=== PATIENT | male | born 1980 | race Caucasian/White ===

== ENCOUNTER → 2021-11-04 08:06 | Emergency (ER) | payer OTHER | LOC: ED 08:06 | DX: Z53.9 Procedure and treatment not carried out, unspecified reason (principal) ==

== ENCOUNTER 2021-11-04 08:10 | Emergency (ER) | payer OTHER ==
[2021-11-04] MEDS ORDERED: Sodium Chloride 0.9% 1000 ML 1,000 ML ONE (08:30)
[2021-11-04] MEDS ORDERED: Sodium Chloride 0.9% 1000 ML 1,000 ML IV SCH (08:30)
[2021-11-04 08:37] LABS: Absolute Neutrophil Ct (ANC) 1.77 x10^3/uL (1.4-6.9); Basophil (Absolute #) 0.03 x10^3/uL (0-0.4); Eosinophil % 5.9 % (0.00-5.0); Eosinophil (Absolute #) 0.25 x10^3/uL (0-0.5); Hematocrit 43.4 % (42-50); Hemoglobin 14.5 g/dL (12.5-18.0); Lymphocytes % 42.2 % (24.0-44.0); Mean Corpuscular Hemoglobin 30.1 pg (26-32); Mean Corpuscular Hgb Concent. 33.4 g/dL (32-36); Mean Platelet Volume 10.7 fL (7.5-11.0); Monocyte (Absolute #) 0.42 x10^3/uL (0.0-1.3); Monocytes % 9.8 % (0.0-12.0); Neutrophil % 41.4 % (36.0-66.0); Platelet Count 177 x10^3/uL (150-450); Red Blood Count 4.82 x10^6/uL (4.1-5.6); Red Cell Distribution Width 11.9 % (11.5-14.0); White Blood Count 4.3 x10^3/uL (4.0-10.5)
[2021-11-04 08:40] VITALS: O2SAT 96
[2021-11-04 08:51] LABS: ALBUMIN 3.8 g/dL (3.5-5.0); ALKALINE PHOSPHATASE 52 U/L (38-126); ANION GAP 9.4 MEQ/L (5-15); BLOOD UREA NITROGEN 19 mg/dL (9-20); CHLORIDE 105 mmol/L (98-107); Calcium 8.8 mg/dL (8.4-10.2); Carbon Dioxide 28 mmol/L (22-30); Creatinine 1 0.94 mg/dL (0.66-1.25); EST GLOMERULAR FILTRATION RATE > 60.0 ML/MIN; Glucose 115 mg/dL (74-106); MAGNESIUM 2.1 mg/dL (1.6-2.3); Potassium 3.8 mmol/L (3.5-5.1); SGOT/AST 130 U/L (17-59); SGPT/ALT 82 U/L (0-50); SODIUM 139 mmol/L (137-145); Total Protein 6.4 g/dL (6.3-8.2)
--- NOTE | 2021-11-04 09:08 | ERPHSYRPT ---
- History of Present Illness Time Seen by Provider: 11/04/21 09:06 Historian: patient Exam Limitations: no limitations Patient Subjective Stated Complaint: States woke up with chest pain approx 25 minutes ago. Denies SOB, heart palpitations, N/V, dizziness, light headed. D enies any unusual food consumption yesterday or today. Denies pain radiating anywhere. States pain is across entire chest and is described as "tightness." Triage Nursing Assessment: Patient ambulated back to ED without difficulties; no SOB noted. Patient is alert and oriented and answering questions appropriately. Skin warm, dry, normal skin tone. Physician History: States woke up with chest pain approx 25 minutes ago. Denies SOB, heart palpita tions, N/V, dizziness, light headed. Denies any unusual food consumption yesterday or today. Denies pain radiating anywhere. States pain is across entire chest and is described as "tightness." Timing/Duration: today Activities at Onset: none Quality: tightness Location: central Chest Pain Radiation: no radiation Severity of Pain-Max: mild Severity of Pain-Current: none Modifying Factors: Improves With: nothing Associated Symptoms: denies symptoms Prior Chest Pain/Cardiac Workup: no prior chest pain Nitro Today/Relief: no nitro taken today Aspirin Treatment Today: no aspirin today Body Map: 1 - chest pain Allergies/Adverse Reactions: Penicillins Allergy (Verified 11/04/21 08:13) Home Medications: Insulin Pump Syringe, 3 ml [Insulin Cartridge] 1 each MC DAILY 11/27/15 [History] Hx Tetanus, Diphtheria Vaccination/Date Given: Yes Hx Influenza Vaccination/Date Given: No Hx Pneumococcal Vaccination/Date Given: No Immunizations Up to Date: Yes Travel Risk - International Travel Have you traveled outside of the country in past 3 weeks: No - Coronavirus Screening Are you exhibiting any of the following symptoms?: No Close contact with a COVID-19 positive Pt in past 14-21 Days: No - Vaccine Status Have you recieved a Covid-19 vaccination: Yes Volleyball Assistant Coach: [employer] - Vaccination Dates Date of 2cond Vaccination (if applicable): 2020 - Review of Systems Constitutional: No Fever, No Chills Eyes: No Symptoms Ears, Nose, & Throat: No Symptoms Respiratory: No Cough, No Dyspnea Cardiac: Chest Pain, No Edema, No Syncope Abdominal/Gastrointestinal: No Abdominal Pain, No Nausea, No Vomiting, No Diarrhea Genitourinary Symptoms: No Dysuria Musculoskeletal: No Back Pain, No Neck Pain Skin: No Rash Neurological: No Dizziness, No Focal Weakness, No Sensory Changes Psychological: No Symptoms Endocrine: No Symptoms All Other Systems: Reviewed and Negative - Past Medical History Pertinent Past Medical History: Yes Cardiac History: Other Endocrine Medical History: Diabetes Type I GI Medical History: Gallbladder Disease Other Medical History: Heart Murmur - Past Surgical History Past Surgical History: Yes Gastrointestinal: Cholecystectomy - Social History Smoking Status: Never smoker Exposure to second hand smoke: No Drug Use: none Patient Lives Alone: No - Nursing Vital Signs Nursing Vital Signs: Initial Vital Signs Temperature 96.9 F 11/04/21 08:14 Pulse Rate 66 11/04/21 08:14 Respiratory Rate 11 L 11/04/21 08:14 Blood Pressure 120/78 11/04/21 08:14 O2 Sat by Pulse Oximetry 99 11/04/21 08:14 Pain Scale Pain Intensity 5 - Physical Exam General Appearance: no apparent distress, alert Eye Exam: PERRL/EOMI, eyes nml inspection Ears, Nose, Throat Exam: normal ENT inspection, moist mucous membranes Neck Exam: normal inspection, non-tender, supple, full range of motion Respiratory Exam: normal breath sounds, lungs clear, No respiratory distress Cardiovascular Exam: regular rate/rhythm, normal heart sounds Gastrointestinal/Abdomen Exam: soft, No tenderness, No mass Back Exam: normal inspection, No CVA tenderness, No vertebral tenderness Extremity Exam: normal inspection, normal range of motion Neurologic Exam: alert, oriented x 3, cooperative, normal mood/affect, sensation nml, No motor deficits Skin Exam: normal color, warm, dry SpO2: 96 - Course Nursing assessment & vital signs reviewed: Yes EKG Interpreted by Me: Sinus Rhythm - Radiology Exams Chest X-ray Interpretation: Reviewed by me, Negative Ordered Tests: Active Orders 24 hr Category Date Time Status Store Clerk Checker STAT Care 11/04/21 08:24 Active EKG-ER Only STAT Care 11/04/21 08:23 Active IV Insertion STAT Care 11/04/21 08:23 Active Oxygen-ED Only Nasal Cannula 2 lpm Care 11/04/21 08:23 Active CHEST 2 VIEWS (PA AND LAT) Stat Exams 11/04/21 08:41 Taken CBC W DIFF Stat Lab 11/04/21 08:20 Completed CMP Stat Lab 11/04/21 08:20 Completed MAGNESIUM Stat Lab 11/04/21 08:20 Completed TROPONIN Q3H Lab 11/04/21 08:20 Completed TROPONIN Q3H Lab 11/04/21 11:30 Ordered TROPONIN Q3H Lab 11/04/21 14:30 Ordered TROPONIN Q3H Lab 11/04/21 17:30 Ordered TROPONIN Q3H Lab 11/04/21 20:30 Ordered Medication Summary Generic Name Dose Route Start Last Admin Trade Name Freq PRN Reason Stop Dose Admin Sodium Chloride 1,000 mls @ 100 mls/hr 11/04/21 08:30 11/04/21 08:42 Sodium Chloride 0.9% 1000 Ml IV 12/04/21 08:29 100 mls/hr .Q10H LEVY Administration Lab/Rad Data: Laboratory Result Diagrams 11/04/21 08:20 11/04/21 08:20 Laboratory Results 11/04/21 11/04/21 11/04/21 Range/Units 08:20 08:20 08:20 WBC 4.3 (4.0-10.5) x10^3/uL RBC 4.82 (4.1-5.6) x10^6/uL Hgb 14.5 (12.5-18.0) g/dL Hct 43.4 (42-50) % MCV 90.0 (78-100) fL MCH 30.1 (26-32) pg MCHC 33.4 (32-36) g/dL RDW 11.9 (11.5-14.0) % Plt Count 177 (150-450) x10^3/uL MPV 10.7 (7.5-11.0) fL Gran % 41.4 (36.0-66.0) % Immature Gran % (Auto) 0.0 (0.00-0.4) % Nucleat RBC Rel Count 0.0 (0.00-0.1) % Eos # (Auto) 0.25 (0-0.5) x10^3/uL Immature Gran # (Auto) 0.00 (0.00-0.03) x10^3u/L Absolute Lymphs (auto) 1.80 (1.0-4.6) x10^3/uL Absolute Monos (auto) 0.42 (0.0-1.3) x10^3/uL Absolute Nucleated RBC 0.00 (0.00-0.01) x10^3u/L Lymphocytes % 42.2 (24.0-44.0) % Monocytes % 9.8 (0.0-12.0) % Eosinophils % 5.9 H (0.00-5.0) % Basophils % 0.7 (0.0-0.4) % Absolute Granulocytes 1.77 (1.4-6.9) x10^3/uL Basophils # 0.03 (0-0.4) x10^3/uL Sodium 139 (137-145) mmol/L Potassium 3.8 (3.5-5.1) mmol/L Chloride 105 (98-107) mmol/L Carbon Dioxide 28 (22-30) mmol/L Anion Gap 9.4 (5-15) MEQ/L BUN 19 (9-20) mg/dL Creatinine 0.94 (0.66-1.25) mg/dL Estimated GFR > 60.0 ML/MIN Glucose 115 H (74-106) mg/dL Calcium 8.8 (8.4-10.2) mg/dL Magnesium 2.1 (1.6-2.3) mg/dL Total Bilirubin 0.70 (0.2-1.3) mg/dL AST 130 H (17-59) U/L ALT 82 H (0-50) U/L Alkaline Phosphatase 52 (38-126) U/L Troponin I < 0.012 (0.000-0.034) ng/mL Serum Total Protein 6.4 (6.3-8.2) g/dL Albumin 3.8 (3.5-5.0) g/dL - Progress Progress: improved Air Movement: good Blood Culture(s) Obtained: No Antibiotics given: No Counseled pt/family regarding: lab results, diagnosis, need for follow-up, rad results - Departure Departure Disposition: Home Clinical Impression: Chest pain at rest, Elevated liver enzymes Condition: Stable Critical Care Time: Yes Critical Care Time(excluding separately billable procedures): Critical 30-74 mins Referrals: LAN VENTURA MD [Primary Care Provider] - Follow up/PCP as directed Instructions: Chest Pain (DC) Additional Instructions: Discharge/Care Plan CRYSTAL MILES was seen on 11/04/21 in the Emergency Room. The patient was counseled regarding Diagnosis,Lab results, Imaging studies, need for follow up and when to return to the Emergency Room. Prescriptions given: Discharge Note I have spoken with the patient and/or caregivers. I have explained the patient's condition, diagnosis and treatment plan based on the information available to me at this time. I have answered the patient's and/or caregiver's questions and addressed any concerns. The patient and/or caregivers have as good understanding of the patient's diagnosis, condition and treatment plan as can be expected at this point. The vital signs have been stable. The patient's condition is stable and appropriate for discharge from the emergency department. The patient will pursue further outpatient evaluation with the primary care physician or other designated or consulting physician as outlined in the discharge instructions. The patient and/or caregivers are agreeable to this plan of care and follow-up instructions have been explained in detail. The patient and/or caregivers have received these instruction. The patient/and or caregivers are aware that any significant change in condition or worsening of symptoms should prompt an immediate return to this or the closest emergency department or call 911. CRYSTAL MILES was seen on 11/04/21 n the Emergency Room. At that time you were treated for an emergent condition, during your visit Laboratory, Radiology and/or other procedures may have been ordered. It is very important that you follow-up with your Primary Care Physician LAN VENTURA within the next 24- 48 hours to review your Emergency Room visit and the final results of testing that was ordered. Some test results such as Urine Cultures, Blood Cultures, and other cultures if ordered will not be finalized for 24-48 hours. If you do not have a Primary Care Provider please call the medical records department at [phone] ext [phone] to obtain a copy of your results or you may sign into our patient portal to obtain these results by visiting us @ [email or web address] and completing the following steps: 1. Click on the Patient Portal link 2. Click the Patient Self Enrollment Link to complete the enrollment form and entering your 3. Once the enrollment form is completed you will receive an email with a temporary ID and password at the email address you provided. 4. Next choose a user name and password. Your user name must be at least 4 khanh racters long and your password must be at least 4 characters long. 5. Choose a security question from the list and provide your answer to the question. If you already have signed into the Health Portal you may access your Health Care Information 18/11 by the following steps: 1. Login to our website @ [email or web address] 2. Enter your original user name and password. FAQS The [facility] Portal is an online tool that contains your Lab Results, Radiology Reports, Visit History, Discharge Instructions and Health Summary Lab and Radiology Results will not be available for 72 hours on the portal. The Portal is a secure site, passwords are encryted and URLs are re-written so they cannot be copied and pasted. You and authorized family members are the only ones who can access your Portal. Also there is a timeout feature that protects your information if you leave the Portal page open. If you have technical difficulty please use the Contact Us link on the page this will allow you to submit any questions you have regarding the Portal or you may contact the Medical Record Department at [phone] ext [phone].
[2021-11-04 09:21] VITALS: BP 119/84; PULSE 64
--- NOTE | 2021-11-04 19:37 | XRAY ---
Indication: Chest pain. Comparison: March 30, 2020. PA/lateral chest again hyperinflated with a few tiny calcified granulomas. No focal infiltrate, consolidation, or large effusion. Heart and mediastinal structures within normal limits. Bony thorax intact. Impression: Nonacute hyperinflated chest with old granulomatous disease.
[2021-11-06 08:12] LABS: HBsAg Screen Negative (Negative); HCV Ab 0.1 s/co ratio (0.0-0.9); Hep A Ab, IgM Negative (Negative); Hep B Core Ab, IgM Negative (Negative)
== END 2021-11-04 09:31 | disposition home or self-care (01) ==
LOC: ED 08:10
DX: R07.9 Chest pain, unspecified (principal); R74.8 Abnormal levels of other serum enzymes; E10.9 Type 1 diabetes mellitus without complications
CPT/HCPCS: 36000; 36415; 71046; 80053; 80074; 83735; 84484; 85025; 93005; 93041; 96360; 99284

== ENCOUNTER 2024-04-17 04:02 | Observation (INO) | payer OTHER ==
--- NOTE | 2024-04-17 04:59 | XRAY ---
CLINICAL HISTORY: syncopal episode, slurred speech COMPARISON: None. TECHNIQUE: Axial noncontrast CT scan of the brain was performed from the skull base to the high parietal region. One of the following dose reduction techniques were utilized for this exam: Automated exposure control, adjustment of the mA and/or kV according to patient size, use of iterative reconstruction. FINDINGS: The visualized brain parenchyma shows normal appearance. No focal parenchymal abnormalities are demonstrated. Toure-white matter differentiation is maintained. No midline shifts or deformity. No intracerebral or extra axial hematoma. Normal size and configuration of the cerebral ventricles. Normal CT appearance of the posterior fossa structures namely the cerebellar hemispheres, brainstem and cerebellar peduncles. The cerebello-pontine angles are clear. The osseous structures in the skull base are unremarkable. No definite calvarium fractures. Mucosal thickening of bilateral maxillary, sphenoidal, ethmoidal and frontal sinuses. IMPRESSION: 1. No evidence of established infarction, intracranial or extracranial hemorrhage. Early changes of stroke may not be detected on a CT scan. If strong clinical suspicion of stroke then suggest MRI with diffusion-weighted imaging. 2. Pansinusitis. Electronically Signed by: Marli Holt MD. (04/17/2024 04:55:04 EST)
--- NOTE | 2024-04-17 05:11 | ERPHSYRPT ---
- History of Present Illness Source: patient Exam Limitations: no limitations Patient Subjective Stated Complaint: Pts states pt went to the bathroom and she heard a thud and pt had fallen into hallway, was on the ground "pasty white" and would only say "stop it" for approx 20 minutes with slurred speech. Per pts the event as decribed happened two more times each time pt "coming to" sa gage stop it repeatedly with slurred speech. Pts states each time pts eyes would be open but not "cohearant". While these events were taking place pt was said to be cold to the touch, pale, lips pale. Triage Nursing Assessment: Pt alert and oriented x3. Respirations eas y/nonlabored. Skin w/p/d. Wheeled to ED cot, transfered with assist x1. 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 Strong push/pull bilat lower extremities. PERRLA. Laceration to right eyebrow approx 3cm in length. Witnessed: by family Prior Episodes: multiple episodes today, no prior history Timing/Duration: today, resolved prior to arrival Precipitating Factors: none Context: standing Loss of Consciousness: brief (seconds), dazed Charcter of event(s): collapsed Hx Tetanus, Diphtheria Vaccination/Date Given: No Hx Influenza Vaccination/Date Given: No Hx Pneumococcal Vaccination/Date Given: No <SILVIA MACIAS - Last Filed: 04/17/24 07:11> <CONNIE STALEY - Last Filed: 04/17/24 08:09> - History of Present Illness Time Seen by Provider: 04/17/24 04:45 Allergies/Adverse Reactions: Penicillins Allergy (Verified 04/17/24 04:25) Home Medications: Insulin Pump Syringe, 3 ml [Insulin Cartridge] 1 each MC DAILY 11/27/15 [History] Losartan Potassium 25 mg PO DAILY 04/17/24 [History] Travel Risk - International Travel Have you traveled outside of the country in past 3 weeks: No - Emerging Infectious Disease Are you exhibiting symptoms associated with any current EIDs: No <SILVIA MACIAS - Last Filed: 04/17/24 07:11> - Past Medical History Pertinent Past Medical History: Yes Cardiac History: Hypertension Respiratory History: Asthma Endocrine Medical History: Diabetes Type I Musculoskeletal History: No Pertinent History GI Medical History: Gallbladder Disease, Other Other Medical History: SX history: R knee Meniscus Repair (Feb 12), Left elbow lateral epicondylitis sx Apr 2022, Gallbladder removed. Nonalcoholic fatty liver - Past Surgical History Past Surgical History: Yes Gastrointestinal: Cholecystectomy Musculoskeletal: Other Other Surgical History: SX history: R knee Meniscus Repair (Feb 12), Left elbow lateral epicondylitis sx Apr 2022 - Social History Smoking Status: Never smoker Exposure to second hand smoke: No Drug Use: none Patient Lives Alone: No - Social Determinants of Health Will the patient participate in the screening: Yes Do you worry about a steady place to live?: No Do you have any problems with any of the following?: No known problems In the past 12 months,have you had to go without utilities?: No Transportation Issues: No Has anyone in your support network made you feel unsafe?: No Have you or anyone in your house had to go without enough: No <SILVIA MACIAS - Last Filed: 04/17/24 07:11> - Review of Systems All Other Systems: Reviewed and Negative <SILVIA MACIAS - Last Filed: 04/17/24 07:11> Physical Exam - [place] Coma Scale Best Eye Response ([place]): (4) open spontaneously Best Verbal Response ([place]): (5) oriented Best Motor Response ([place]): (6) obeys commands Bam Total: 15 - Physical Exam General Appearance: no apparent distress Eye Exam: bilateral eye: normal inspection, PERRL, EOMI Neck Exam: normal inspection, non-tender, supple, full range of motion Respiratory: airway intact, No respiratory distress Cardiovascular: regular rate/rhythm, normal heart sounds, capillary refill <2 sec, No edema Back Exam: normal inspection, normal range of motion, No vertebral tenderness Extremity Exam: normal inspection, normal range of motion, No tenderness Mental Status: alert, oriented x 3, cooperative device engineer Exam: normal hearing, normal speech, PERRL, tongue midline Coordination/Gait: normal cerebellar function Motor/Sensory: no motor deficit, no sensory deficit, no pronator drift Skin Exam: laceration (center forehead) SpO2 Interpretation: normal SpO2: 97 O2 Delivery: Room Air <SILVIA MACIAS - Last Filed: 04/17/24 07:11> - Nursing Vital Signs Nursing Vital Signs: Initial Vital Signs Pulse Rate 60 12/21/24 04:14 Respiratory Rate 21 04/17/24 04:14 Blood Pressure 112/66 04/17/24 04:14 O2 Sat by Pulse Oximetry 100 04/17/24 04:14 Pain Scale Pain Intensity 3 - Course Nursing assessment & vital signs reviewed: Yes EKG Interpreted by Me: RATE (59), Sinus Rhythm, NORMAL AXIS, NORMAL INTERVALS, NORMAL QRS, NORMAL ST-T - CT Exams Head CT Interpretation: Negative, Tele-radiologist Report <SILVIA MACIAS - Last Filed: 04/17/24 07:11> Ordered Tests: Active Orders 24 hr Category Date Time Status EKG-ER Only STAT Care 04/17/24 05:06 Active CHEST 1 VIEW (PORTABLE) Stat Exams 04/17/24 07:[address] ANGIOGRAPHY NECK [CT] Stat Exams 04/17/24 05:22 Completed CTA HEAD W AND/OR WO CONTRAST [CT] Stat Exams 04/17/24 05:22 Completed HEAD WITHOUT CONTRAST [CT] Stat Exams 04/17/24 04:16 Completed CBC W DIFF Stat Lab 04/17/24 05:16 Completed CMP Stat Lab 04/17/24 05:16 Completed POCT GLUCOSE Stat Lab 04/17/24 04:09 Completed TROPONIN Q4H Lab 04/17/24 05:16 Completed TROPONIN Q4H Lab 04/17/24 09:15 Ordered TROPONIN Q4H Lab 04/17/24 13:15 Ordered TSH, 3RD Generation Stat Lab 04/17/24 05:16 Completed UA W/RFX UR CULTURE Stat Lab 04/17/24 06:32 Completed [place] 3-7 Day Holter ONCE RT 04/17/24 06:48 Completed Medication Summary Discontinued Medications Generic Name Dose Route Start Last Admin Trade Name Fabiana PRN Reason Stop Dose Admin Acetaminophen 975 mg 04/17/24 06:38 04/17/24 06:42 Acetaminophen 325 Mg Tablet PO 04/17/24 06:39 975 mg STAT STA Administration Acetaminophen Confirm 04/17/24 06:41 Acetaminophen 325 Mg Tablet Administered 04/17/24 06:42 Dose 975 mg .ROUTE .STK-MED ONE Lab/Rad Data: Laboratory Result Diagrams 04/17/24 05:16 04/17/24 05:16 Laboratory Results 04/17/24 04/17/24 04/17/24 Range/Units 06:32 05:16 05:16 WBC (4.23-9.07) x10^3/uL RBC (4.63-6.08) x10^6/uL Hgb (13.7-17.5) g/dL Hct (40.1-51.0) % MCV (79.0-92.2) fL MCH (25.7-32.2) pg MCHC (32.3-36.5) g/dL RDW (11.6-14.4) % Plt Count (163-337) x10^3/uL MPV (9.4-12.4) fL Gran % (34.0-67.9) % Immature Gran % (Auto) (0.001-0.429) % Nucleat RBC Rel Count (0.00-0.2) % Eos # (Auto) (0.04-0.54) x10^3/uL Immature Gran # (Auto) (0.001-0.031) x10^3u/L Absolute Lymphs (auto) (1.32-3.57) x10^3/uL Absolute Monos (auto) (0.30-0.82) x10^3/uL Absolute Nucleated RBC (0.00-0.012) x10^3u/L Lymphocytes % (21.8-53.1) % Monocytes % (5.3-12.2) % Eosinophils % (0.8-7.0) % Basophils % (0.2-1.2) % Absolute Granulocytes (1.78-5.38) x10^3/uL Basophils # (0.01-0.08) x10^3/uL Sodium (135-145) mmol/L Potassium (3.5-5.1) mmol/L Chloride (98-107) mmol/L Carbon Dioxide (22-30) mmol/L Anion Gap (5-15) MEQ/L BUN (9-20) mg/dL Creatinine (0.66-1.25) mg/dL Estimated GFR ML/MIN Glucose (74-106) mg/dL POC Glucometer (74 to 106) mg/dL Calcium (8.4-10.2) mg/dL Total Bilirubin (0.2-1.3) mg/dL AST (17-59) U/L ALT (0-50) U/L Alkaline Phosphatase (38-126) U/L Ammonia < 9 L (9-30) umol/L Troponin I < 0.012 (0.000-0.033) ng/mL Serum Total Protein (6.3-8.2) g/dL Albumin (3.5-5.0) g/dL TSH 3rd Generation (0.470-4.680) mIU/L Urine Color Yellow (Yellow) Urine Appearance Clear (Clear) Urine pH 5.5 (4.6-8.0) Ur Specific [place] >=1.030 A (1.005-1.030) Urine Protein Trace A (Negative) Urine Glucose (UA) Negative (Negative) mg/dL Urine Ketones Negative (Negative) Urine Blood Negative (Negative) Urine Nitrite Negative (Negative) Urine Bilirubin Negative (Negative) Urine Urobilinogen 1.0 A (0.2) mg/dL Ur Leukocyte Esterase Negative (Negative) U Hyaline Cast (Auto) 3-5 A (0-2) /LPF Urine Microscopic RBC 0-2 (0-5) /HPF Urine Microscopic WBC 0-2 (0-5) /HPF Ur Epithelial Cells None Seen (None Seen) /HPF Urine Bacteria None Seen (None Seen) /HPF Urine Culture Reflexed NO (NO) 04/17/24 04/17/24 04/17/24 Range/Units 05:16 05:16 04:09 WBC 5.9 (4.23-9.07) x10^3/uL RBC 4.80 (4.63-6.08) x10^6/uL Hgb 14.5 (13.7-17.5) g/dL Hct 42.2 (40.1-51.0) % MCV 87.9 (79.0-92.2) fL MCH 30.2 (25.7-32.2) pg MCHC 34.4 (32.3-36.5) g/dL RDW 11.9 (11.6-14.4) % Plt Count 219 (163-337) x10^3/uL MPV 11.0 (9.4-12.4) fL Gran % 46.2 (34.0-67.9) % Immature Gran % (Auto) 0.2 (0.001-0.429) % Nucleat RBC Rel Count 0.0 (0.00-0.2) % Eos # (Auto) 0.30 (0.04-0.54) x10^3/uL Immature Gran # (Auto) 0.01 (0.001-0.031) x10^3u/L Absolute Lymphs (auto) 2.20 (1.32-3.57) x10^3/uL Absolute Monos (auto) 0.59 (0.30-0.82) x10^3/uL Absolute Nucleated RBC 0.00 (0.00-0.012) x10^3u/L Lymphocytes % 37.5 (21.8-53.1) % Monocytes % 10.1 (5.3-12.2) % Eosinophils % 5.1 (0.8-7.0) % Basophils % 0.9 (0.2-1.2) % Absolute Granulocytes 2.71 (1.78-5.38) x10^3/uL Basophils # 0.05 (0.01-0.08) x10^3/uL Sodium 141 (135-145) mmol/L Potassium 3.8 (3.5-5.1) mmol/L Chloride 106 (98-107) mmol/L Carbon Dioxide 27 (22-30) mmol/L Anion Gap 11.8 (5-15) MEQ/L BUN 17 (9-20) mg/dL Creatinine 1.09 (0.66-1.25) mg/dL Estimated GFR 85.3 ML/MIN Glucose 99 (74-106) mg/dL POC Glucometer 91 (74 to 106) mg/dL Calcium 8.8 (8.4-10.2) mg/dL Total Bilirubin 0.30 (0.2-1.3) mg/dL AST 33 (17-59) U/L ALT 27 (0-50) U/L Alkaline Phosphatase 40 (38-126) U/L Ammonia (9-30) umol/L Troponin I (0.000-0.033) ng/mL Serum Total Protein 6.6 (6.3-8.2) g/dL Albumin 4.4 (3.5-5.0) g/dL TSH 3rd Generation 4.889 H (0.470-4.680) mIU/L Urine Color (Yellow) Urine Appearance (Clear) Urine pH (4.6-8.0) Ur Specific [place] (1.005-1.030) Urine Protein (Negative) Urine Glucose (UA) (Negative) mg/dL Urine Ketones (Negative) Urine Blood (Negative) Urine Nitrite (Negative) Urine Bilirubin (Negative) Urine Urobilinogen (0.2) mg/dL Ur Leukocyte Esterase (Negative) U Hyaline Cast (Auto) (0-2) /LPF Urine Microscopic RBC (0-5) /HPF Urine Microscopic WBC (0-5) /HPF Ur Epithelial Cells (None Seen) /HPF Urine Bacteria (None Seen) /HPF Urine Culture Reflexed (NO) - Progress Progress: improved Counseled pt/family regarding: lab results, diagnosis, need for follow-up, rad results <SILVIA MACIAS - Last Filed: 04/17/24 07:11> - Progress Discussed with Dr.: Other (Dr. Cárdenas hospitalist) Will see patient in: hospital (observation) <CONNIE STALEY - Last Filed: 04/17/24 08:09> - Progress Progress Note: 04/17/24 08:03 Patient is checked out to me at shift change from Dr. Macias with pending CTA head and neck. Patient presented with 3 syncopal episodes prior to arrival. He has a nonfocal neuroexam during my evaluation. He denies any headache. Vitals are stable. Forehead laceration is repaired by Dr. Macias with glue and Steri- Strips. Workup showed normal white count, chemistries fairly unremarkable except for mild elevation in TSH. Negative troponins. EKG is sinus rhythm with no ST elevations. Chest x-ray is negative for any acute cardiopulmonary findings reviewed by me, official report is pending. CT head is negative. CTA head and neck are negative for any acute occlusive findings. I do not know why patient had multiple syncopal episodes which seems to be possible cardiogenic and needs further evaluation. Dr. Macias has placed patient on a heart monitor. I have discussed with Dr. Cárdenas, reviewed history, workup and agreed with admission. I have shared the results of workup with patient and family and recommended admission which they understand and agree. (CONNIE STALEY) Medical Desision Making - Diagnostic Testing Diagnostic test were ordered, analyzed, and reviewed by me: Yes Radiological Interpretation: Interpreted by me, Reviewed by me, Teleradiologist Report - Risk of complications The pt has a mod risk of morbidity or mortality based on: Need for prescription drug management <SILVIA MACIAS - Last Filed: 04/17/24 07:11> - Independent Historian Additional History obtained from: Spouse - Discussion of managment Care discussed with:: hospitalist (Dr. Cárdenas hospitalist) Reviewed:: Test results, Need for additional workup Agreed on:: Treatment plan, place in obs Will see patient: in hospital - Diagnostic Testing Radiological Interpretation: Interpreted by me, Reviewed by me, Teleradiologist Report - Risk of complications The pt has a high risk of morbidity or mortality based on: Decision regarding hospitilization or escalation of hosp level of care <CONNIE STALEY - Last Filed: 04/17/24 08:09> - Departure Critical Care Time: No <SILVIA MACIAS - Last Filed: 04/17/24 07:11> - Departure Departure Disposition: Observation <CONNIE STALEY - Last Filed: 04/17/24 08:09> - Departure Clinical Impression: Syncope and collapse, Laceration of forehead without complication Condition: Good Referrals: LAN VENTURA MD [Primary Care Provider] - Follow up/PCP as directed Instructions: Syncope (Fainting) (DC)
[2024-04-17 05:20] LABS: Absolute Neutrophil Ct (ANC) 2.71 x10^3/uL (1.78-5.38); BASOPHIL % 0.9 % (0.2-1.2); Basophil (Absolute #) 0.05 x10^3/uL (0.01-0.08); Eosinophil % 5.1 % (0.8-7.0); Hematocrit 42.2 % (40.1-51.0); Hemoglobin 14.5 g/dL (13.7-17.5); IMMATURE GRAN # 0.01 x10^3u/L (0.001-0.031); IMMATURE GRAN % 0.2 % (0.001-0.429); Lymphocytes % 37.5 % (21.8-53.1); Mean Cell Volume 87.9 fL (79.0-92.2); Mean Corpuscular Hemoglobin 30.2 pg (25.7-32.2); Mean Corpuscular Hgb Concent. 34.4 g/dL (32.3-36.5); Monocyte (Absolute #) 0.59 x10^3/uL (0.30-0.82); Monocytes % 10.1 % (5.3-12.2); Neutrophil % 46.2 % (34.0-67.9); Platelet Count 219 x10^3/uL (163-337); Red Cell Distribution Width 11.9 % (11.6-14.4); White Blood Count 5.9 x10^3/uL (4.23-9.07)
[2024-04-17 06:04] LABS: ALBUMIN 4.4 g/dL (3.5-5.0); ANION GAP 11.8 MEQ/L (5-15); BILIRUBIN,TOTAL 0.3 mg/dL (0.2-1.3); Calcium 8.8 mg/dL (8.4-10.2); Creatinine 1 1.09 mg/dL (0.66-1.25); EST GLOMERULAR FILTRATION RATE 85.3 ML/MIN; Potassium 3.8 mmol/L (3.5-5.1); TSH, 3RD Generation 4.889 mIU/L (0.470-4.680); Total Protein 6.6 g/dL (6.3-8.2)
[2024-04-17 06:40] LABS: Appearance Clear (Clear); Bacteria None Seen /HPF (None Seen); Bilirubin Negative (Negative); Blood Negative (Negative); Epithelial Cells None Seen /HPF (None Seen); Glucose, Urine Negative (Negative); Ketones Negative (Negative); Leukocyte Esterase Negative (Negative); Nitrite Negative (Negative); Ph 5.5 (4.6-8.0); Protein,Urine Dip Trace (Negative); RBC 0-2 /HPF (0-5); Specific Gravity >=1.030 (1.005-1.030); WBC 0-2 /HPF (0-5)
[2024-04-17] MEDS ORDERED: TYLENOL 325 MG ONE (06:41)
[2024-04-17] MEDS: TYLENOL 325 MG PO STA (06:42)
--- NOTE | 2024-04-17 07:03 | XRAY ---
CLINICAL HISTORY: syncope COMPARISON: None. TECHNIQUE: CT angiography study of the neck vessels with IV contrast was performed and multiple axial sections were obtained with coronal and sagittal reconstructions. 80 cc Isovue 370 was administered, CTDI: 33.25 mGy, DLP: 702.58 mGy*cm. One of the following dose reduction techniques were utilized for this exam: Automated exposure control, adjustment of the mA and/or kV according to patient size, and use of iterative reconstruction. One of these 3D techniques was utilized: Maximum Intensity Pixel (MIP), 3D Reconstructed Images, Volume Rendered Images, Surface Shaded Rendering. FINDINGS: Carotid Arteries: Common carotid arteries, internal carotid arteries, and external carotid arteries bilaterally are well-opacified. No evidence of significant stenosis, occlusion, or aneurysm. No significant atherosclerotic changes. Vertebral Arteries: Vertebral arteries bilaterally are well-opacified. No evidence of significant stenosis, occlusion, or aneurysm. No significant atherosclerotic changes. Jugular Veins: Normal opacification of the internal and external jugular veins bilaterally. No evidence of thrombosis or compression. Subclavian Arteries: Subclavian arteries bilaterally are well-opacified. No evidence of significant stenosis, occlusion, or aneurysm. Thyroid Gland: Normal size and morphology of the thyroid gland. No masses or nodules. Soft Tissues: Normal appearance of the surrounding soft tissues of the neck. No abnormal masses or lymphadenopathy. Cervical Spine: Spondylotic changes in cervical spine. Normal alignment and signal intensity of the cervical vertebrae. No fractures, lytic or sclerotic lesions. IMPRESSION: 1. Normal CT angiography of the neck. 2. No evidence of significant vascular abnormalities. Electronically Signed by: Marli Holt MD. (04/17/2024 07:00:04 EST)
--- NOTE | 2024-04-17 07:30 | XRAY ---
CLINICAL HISTORY: syncope COMPARISON: Prior CT dated 04/17/2024 for comparison. TECHNIQUE: Axial CT angiography of the head was done with contrast (80 ml Isovue 370) and sagittal and coronal reformats with MIP reconstructions. One of these 3D techniques was utilized: Maximum Intensity Pixel (MIP), 3D Reconstructed Images, Volume Rendered Images, Surface Shaded Rendering. One of the following dose reduction techniques were utilized for this exam: Automated exposure control, adjustment of the mA and/or kV according to patient size, and use of iterative reconstruction. CTDI: 53.92 mGy. FINDINGS: Intracranial Arteries: The intracranial portions of the internal carotid arteries, anterior cerebral arteries, middle cerebral arteries, posterior cerebral arteries, basilar artery, and vertebral arteries are well-opacified. No evidence of aneurysm, stenosis, or occlusion. No significant atherosclerotic changes. [place]: The [place] is complete. Normal caliber of the communicating arteries. No vascular malformations or aneurysms. Dominant left vertebral artery. Venous Structures: Normal opacification of the major dural venous sinuses. No evidence of venous sinus thrombosis. Brain Parenchyma: Normal attenuation of the cerebral hemispheres, cerebellum, and brainstem. No evidence of acute infarct, hemorrhage, or mass effect. Ventricular System: Ventricles are normal in size and configuration. No evidence of hydrocephalus or ventricular enlargement. Skull and Meninges: Normal appearance of the skull. No evidence of meningeal enhancement or thickening. Orbits: Normal appearance of the globes, optic nerves, and extraocular muscles. No evidence of orbital masses. Mild mucosal thickening in left maxillary, right sphenoid and bilateral ethmoid sinuses. Unchanged. IMPRESSION: 1. Normal CT angiography of the head. 2. No evidence of significant vascular or intracranial abnormalities. Electronically Signed by: Marli Holt MD. (04/17/2024 07:25:16 EST)
--- NOTE | 2024-04-17 08:10 | XRAY ---
Indication: Syncope. Comparison: November 04, 2021 Portable apical lordotic chest again demonstrates normal heart, lungs, and bony thorax. Incidental new midline electronic device.
[2024-04-17] MEDS ORDERED: Sodium Chloride 0.9% 1000 ML 1,000 ML ONE (08:28)
[2024-04-17] MEDS: Sodium Chloride 0.9% 1000 ML 1,000 ML IV STA (08:29)
--- NOTE | 2024-04-17 10:11 | PCM.HP ---
History of Present Illness - Chief Complaint Chief Complaint: Syncope and collapse Date: 04/17/24 History of Present Illness: is a 43 year old male with PMHX of Type I DM, asthma, HTN, and nonalcoholic fatty liver disease. Patient presented with 3 syncopal episodes prior to arrival. Neuro exam normal in ER and on IP admission. He has a headache and was given tylenol in the ER, current pain level 3/10. Vitals are stable. Forehead laceration was repaired by Dr. Schuster in ER with glue and Steri-Strips. Workup showed normal white count, chemistries fairly unremarkable except for mild elevation in TSH. Negative troponins. EKG is sinus rhythm with no ST elevations. Chest x-ray is negative for any acute cardiopulmonary findings. CT head is negative. CTA head and neck are negative for any acute occlusive findings. Neurology consulted. We are unable to do MRI, or echo on the weekends. Placed on tele. Will monitor glucose by dexcom and compare with accucheck machine AC/HS. He denies any further concerns at this time. - Review of Systems Constitutional: No Fever, No Chills Eyes: No Symptoms Ears, Nose, & Throat: No Symptoms Respiratory: No Cough, No Short Of Breath Cardiac: No Chest Pain, No Edema, No Syncope Abdominal/Gastrointestinal: No Abdominal Pain, No Nausea, No Vomiting, No Diarrhea Genitourinary Symptoms: No Dysuria Musculoskeletal: No Back Pain, No Neck Pain Skin: Skin Lesions (lac above right eyebrow), No Rash Neurological: Headache, No Dizziness, No Focal Weakness, No Sensory Changes Psychological: No Symptoms Endocrine: No Symptoms Hematologic/Lymphatic: No Symptoms Immunological/Allergic: No Symptoms Medications & Allergies Home Medications: Home Medication List Insulin Pump Syringe, 3 ml [Insulin Cartridge] 1 each MC DAILY 11/27/15 [History Confirmed 04/17/24] Losartan Potassium 25 mg PO DAILY 04/17/24 [History Confirmed 04/17/24] Allergies/Adverse Reactions: Allergies Allergy/AdvReac Type Severity Reaction Status Date / Time Penicillins Allergy Verified 04/17/24 04:25 - Past Medical History Past Medical History: Yes Neurological History: No Pertinent History ENT History: No Pertinent History Cardiac History: Hypertension Respiratory History: No Pertinent History Endocrine Medical History: Diabetes Type I Musculoskelatal History: No Pertinent History GI Medical History: Gallbladder Disease, Other History: No Pertinent History Male Reproductive Disorders: No Pertinent History Comment: SX history: R knee Meniscus Repair (Feb 12), bilateral elbow lateral epicondylitis sx Apr 2022, Gallbladder removed. Nonalcoholic fatty liver - Past Surgical History Past Surgical History: Yes Neuro Surgical History: No Pertinent History Cardiac History: No Pertinent History Respiratory Surgery: No Pertinent History GI Surgical History: Cholecystectomy Genitourinary Surgical Hx: No Pertinent History Musculskeletal Surgical Hx: Other Male Surgical History: No Pertinent History Other Surgical History: SX history: R knee Meniscus Repair (Feb 12), Left elbow lateral epicondylitis sx Apr 2022 - Social History Smoking Status: Never smoker Exposure to second hand smoke: No Alcohol: Weekly Drug Use: none - Social Determinants of Health Will the patient participate in the screening: Yes Do you worry about a steady place to live?: No Do you have any problems with any of the following?: No known problems In the past 12 months,have you had to go without utilities?: No Have you or anyone in your house had to go without enough: No Transportation Issues: No Has anyone in your support network made you feel unsafe?: No Does the patient want assistance with any of the above?: No - Physical Exam Vital Signs: Vital Signs - 24 hr Temp Pulse Resp BP BP Pulse Ox 04/17/24 09:43 97.9 F 72 20 125/77 95 04/17/24 09:26 97.9 F 72 20 125/77 95 04/17/24 09:00 69 17 118/74 96 04/17/24 08:54 70 14 120/75 04/17/24 08:30 75 21 124/70 96 04/17/24 08:00 65 10 L 124/73 95 04/17/24 07:30 66 15 123/72 97 04/17/24 07:14 97 04/17/24 07:00 72 14 118/71 98 04/17/24 06:30 64 12 110/66 98 04/17/24 06:23 70 15 118/80 97 04/17/24 06:00 66 11 L 115/74 97 04/17/24 05:30 73 14 106/69 96 04/17/24 05:00 65 12 106/73 97 04/17/24 04:30 63 14 103/74 97 04/17/24 04:29 60 14 108/74 97 04/17/24 04:17 97.8 F 61 16 112/66 97 04/17/24 04:14 60 21 112/66 100 General Appearance: no apparent distress, alert Neurologic Exam: alert, oriented x 3, cooperative, 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 as tested, normal mood/affect, nml cerebellar function, nml station & gait, sensation nml, No motor deficits Eye Exam: PERRL/EOMI, eyes nml inspection Ears, Nose, Throat Exam: normal ENT inspection, TMs normal, pharynx normal, moist mucous membranes Neck Exam: normal inspection, non-tender, supple, full range of motion Respiratory Exam: normal breath sounds, lungs clear, No respiratory distress Cardiovascular Exam: regular rate/rhythm, normal heart sounds, normal peripheral pulses Gastrointestinal/Abdomen Exam: soft, normal bowel sounds, No tenderness, No mass Back Exam: normal inspection, normal range of motion, No CVA tenderness, No vertebral tenderness Extremity Exam: normal inspection, normal range of motion, pelvis stable Skin Exam: normal color, warm, dry, other (lac above right eyebrow, repaired with glue and steristrips), No rash Lymphatic Exam: No adenopathy Results - Labs Lab/Micro Results: Lab Results-Last 24 Hours 04/17/24 04/17/24 04/17/24 Range/Units 04:09 05:16 05:16 WBC 5.9 (4.23-9.07) x10^3/uL RBC 4.80 (4.63-6.08) x10^6/uL Hgb 14.5 (13.7-17.5) g/dL Hct 42.2 (40.1-51.0) % MCV 87.9 (79.0-92.2) fL MCH 30.2 (25.7-32.2) pg MCHC 34.4 (32.3-36.5) g/dL RDW 11.9 (11.6-14.4) % Plt Count 219 (163-337) x10^3/uL MPV 11.0 (9.4-12.4) fL Gran % 46.2 (34.0-67.9) % Immature Gran % (Auto) 0.2 (0.001-0.429) % Nucleat RBC Rel Count 0.0 (0.00-0.2) % Eos # (Auto) 0.30 (0.04-0.54) x10^3/uL Immature Gran # (Auto) 0.01 (0.001-0.031) x10^3u/L Absolute Lymphs (auto) 2.20 (1.32-3.57) x10^3/uL Absolute Monos (auto) 0.59 (0.30-0.82) x10^3/uL Absolute Nucleated RBC 0.00 (0.00-0.012) x10^3u/L Lymphocytes % 37.5 (21.8-53.1) % Monocytes % 10.1 (5.3-12.2) % Eosinophils % 5.1 (0.8-7.0) % Basophils % 0.9 (0.2-1.2) % Absolute Granulocytes 2.71 (1.78-5.38) x10^3/uL Basophils # 0.05 (0.01-0.08) x10^3/uL Sodium 141 (135-145) mmol/L Potassium 3.8 (3.5-5.1) mmol/L Chloride 106 (98-107) mmol/L Carbon Dioxide 27 (22-30) mmol/L Anion Gap 11.8 (5-15) MEQ/L BUN 17 (9-20) mg/dL Creatinine 1.09 (0.66-1.25) mg/dL Estimated GFR 85.3 ML/MIN Glucose 99 (74-106) mg/dL POC Glucometer 91 (74 to 106) mg/dL Calcium 8.8 (8.4-10.2) mg/dL Total Bilirubin 0.30 (0.2-1.3) mg/dL AST 33 (17-59) U/L ALT 27 (0-50) U/L Alkaline Phosphatase 40 (38-126) U/L Ammonia (9-30) umol/L Troponin I (0.000-0.033) ng/mL Serum Total Protein 6.6 (6.3-8.2) g/dL Albumin 4.4 (3.5-5.0) g/dL TSH 3rd Generation 4.889 H (0.470-4.680) mIU/L Urine Color (Yellow) Urine Appearance (Clear) Urine pH (4.6-8.0) Ur Specific [place] (1.005-1.030) Urine Protein (Negative) Urine Glucose (UA) (Negative) mg/dL Urine Ketones (Negative) Urine Blood (Negative) Urine Nitrite (Negative) Urine Bilirubin (Negative) Urine Urobilinogen (0.2) mg/dL Ur Leukocyte Esterase (Negative) U Hyaline Cast (Auto) (0-2) /LPF Urine Microscopic RBC (0-5) /HPF Urine Microscopic WBC (0-5) /HPF Ur Epithelial Cells (None Seen) /HPF Urine Bacteria (None Seen) /HPF Urine Culture Reflexed (NO) 04/17/24 04/17/24 04/17/24 Range/Units 05:16 05:16 06:32 WBC (4.23-9.07) x10^3/uL RBC (4.63-6.08) x10^6/uL Hgb (13.7-17.5) g/dL Hct (40.1-51.0) % MCV (79.0-92.2) fL MCH (25.7-32.2) pg MCHC (32.3-36.5) g/dL RDW (11.6-14.4) % Plt Count (163-337) x10^3/uL MPV (9.4-12.4) fL Gran % (34.0-67.9) % Immature Gran % (Auto) (0.001-0.429) % Nucleat RBC Rel Count (0.00-0.2) % Eos # (Auto) (0.04-0.54) x10^3/uL Immature Gran # (Auto) (0.001-0.031) x10^3u/L Absolute Lymphs (auto) (1.32-3.57) x10^3/uL Absolute Monos (auto) (0.30-0.82) x10^3/uL Absolute Nucleated RBC (0.00-0.012) x10^3u/L Lymphocytes % (21.8-53.1) % Monocytes % (5.3-12.2) % Eosinophils % (0.8-7.0) % Basophils % (0.2-1.2) % Absolute Granulocytes (1.78-5.38) x10^3/uL Basophils # (0.01-0.08) x10^3/uL Sodium (135-145) mmol/L Potassium (3.5-5.1) mmol/L Chloride (98-107) mmol/L Carbon Dioxide (22-30) mmol/L Anion Gap (5-15) MEQ/L BUN (9-20) mg/dL Creatinine (0.66-1.25) mg/dL Estimated GFR ML/MIN Glucose (74-106) mg/dL POC Glucometer (74 to 106) mg/dL Calcium (8.4-10.2) mg/dL Total Bilirubin (0.2-1.3) mg/dL AST (17-59) U/L ALT (0-50) U/L Alkaline Phosphatase (38-126) U/L Ammonia < 9 L (9-30) umol/L Troponin I < 0.012 (0.000-0.033) ng/mL Serum Total Protein (6.3-8.2) g/dL Albumin (3.5-5.0) g/dL TSH 3rd Generation (0.470-4.680) mIU/L Urine Color Yellow (Yellow) Urine Appearance Clear (Clear) Urine pH 5.5 (4.6-8.0) Ur Specific [place] >=1.030 A (1.005-1.030) Urine Protein Trace A (Negative) Urine Glucose (UA) Negative (Negative) mg/dL Urine Ketones Negative (Negative) Urine Blood Negative (Negative) Urine Nitrite Negative (Negative) Urine Bilirubin Negative (Negative) Urine Urobilinogen 1.0 A (0.2) mg/dL Ur Leukocyte Esterase Negative (Negative) U Hyaline Cast (Auto) 3-5 A (0-2) /LPF Urine Microscopic RBC 0-2 (0-5) /HPF Urine Microscopic WBC 0-2 (0-5) /HPF Ur Epithelial Cells None Seen (None Seen) /HPF Urine Bacteria None Seen (None Seen) /HPF Urine Culture Reflexed NO (NO) 04/17/24 Range/Units 09:05 WBC (4.23-9.07) x10^3/uL RBC (4.63-6.08) x10^6/uL Hgb (13.7-17.5) g/dL Hct (40.1-51.0) % MCV (79.0-92.2) fL MCH (25.7-32.2) pg MCHC (32.3-36.5) g/dL RDW (11.6-14.4) % Plt Count (163-337) x10^3/uL MPV (9.4-12.4) fL Gran % (34.0-67.9) % Immature Gran % (Auto) (0.001-0.429) % Nucleat RBC Rel Count (0.00-0.2) % Eos # (Auto) (0.04-0.54) x10^3/uL Immature Gran # (Auto) (0.001-0.031) x10^3u/L Absolute Lymphs (auto) (1.32-3.57) x10^3/uL Absolute Monos (auto) (0.30-0.82) x10^3/uL Absolute Nucleated RBC (0.00-0.012) x10^3u/L Lymphocytes % (21.8-53.1) % Monocytes % (5.3-12.2) % Eosinophils % (0.8-7.0) % Basophils % (0.2-1.2) % Absolute Granulocytes (1.78-5.38) x10^3/uL Basophils # (0.01-0.08) x10^3/uL Sodium (135-145) mmol/L Potassium (3.5-5.1) mmol/L Chloride (98-107) mmol/L Carbon Dioxide (22-30) mmol/L Anion Gap (5-15) MEQ/L BUN (9-20) mg/dL Creatinine (0.66-1.25) mg/dL Estimated GFR ML/MIN Glucose (74-106) mg/dL POC Glucometer (74 to 106) mg/dL Calcium (8.4-10.2) mg/dL Total Bilirubin (0.2-1.3) mg/dL AST (17-59) U/L ALT (0-50) U/L Alkaline Phosphatase (38-126) U/L Ammonia (9-30) umol/L Troponin I < 0.012 (0.000-0.033) ng/mL Serum Total Protein (6.3-8.2) g/dL Albumin (3.5-5.0) g/dL TSH 3rd Generation (0.470-4.680) mIU/L Urine Color (Yellow) Urine Appearance (Clear) Urine pH (4.6-8.0) Ur Specific [place] (1.005-1.030) Urine Protein (Negative) Urine Glucose (UA) (Negative) mg/dL Urine Ketones (Negative) Urine Blood (Negative) Urine Nitrite (Negative) Urine Bilirubin (Negative) Urine Urobilinogen (0.2) mg/dL Ur Leukocyte Esterase (Negative) U Hyaline Cast (Auto) (0-2) /LPF Urine Microscopic RBC (0-5) /HPF Urine Microscopic WBC (0-5) /HPF Ur Epithelial Cells (None Seen) /HPF Urine Bacteria (None Seen) /HPF Urine Culture Reflexed (NO) - Radiology Impressions Radiology Exams & Impressions: Radiology Procedures Category Date Time Status CHEST 1 VIEW (PORTABLE) Stat Exams 04/17/24 07:[address] ANGIOGRAPHY NECK [CT] Stat Exams 04/17/24 05:22 Completed CTA HEAD W AND/OR WO CONTRAST [CT] Stat Exams 04/17/24 05:22 Completed HEAD WITHOUT CONTRAST [CT] Stat Exams 04/17/24 04:16 Completed - Other Procedures and Tests Respiratory Therapy 04/17/24 09:35 EKG STAT Assessment/Plan (1) Syncope and collapse Current Visit: Yes Status: Acute Assessment & Plan: - CBC, CMP reviewed - UA reviewed - Vitals OK - Tele - EKG- NSR - Gucose OK - Will need holter monitor at d/c - Neurology consult - CT head: IMPRESSION: 1. No evidence of established infarction, intracranial or extracranial hemorrhage. Early changes of stroke may not be detected on a CT scan. If strong clinical suspicion of stroke then suggest MRI with diffusion-weighted imaging. 2. Pansinusitis. - CXR: Portable apical lordotic chest again demonstrates normal heart, lungs, and bony thorax. Incidental new midline electronic device. - CT angiography: IMPRESSION: 1. Normal CT angiography of the neck. 2. No evidence of significant vascular abnormalities. - CTA Head: IMPRESSION: 1. Normal CT angiography of the head. 2. No evidence of significant vascular or intracranial abnormalities. Code(s): R55 - SYNCOPE AND COLLAPSE (2) Laceration of forehead without complication Current Visit: Yes Status: Acute Qualifiers: Encounter type: initial encounter Qualified Code(s): S01.81XA - Laceration without foreign body of other part of head, initial encounter Assessment & Plan: - after fall - ER physician closed with glue and steri-strips Code(s): S01.81XA - LACERATION W/O FOREIGN BODY OF OTH PART OF HEAD, INIT ENCNTR (3) Pansinusitis Current Visit: Yes Status: Acute Assessment & Plan: - Per CT - Flonase daily Code(s): J32.4 - CHRONIC PANSINUSITIS (4) Nonalcoholic fatty liver disease Current Visit: Yes Status: Chronic Assessment & Plan: - AST, ALT normal (5) HTN (hypertension) Current Visit: Yes Status: Chronic Assessment & Plan: - Continue losartan - BP stable Code(s): I10 - ESSENTIAL (PRIMARY) HYPERTENSION (6) Type I diabetes mellitus, well controlled Current Visit: Yes Status: Chronic Assessment & Plan: - May use insulin pump - may use home glucose monitoring device. - Compare glucose with accuchecks ac/hs - If glucose readings are not similar alert provider. - A1C pending VTE: SCD's Next of KIN: D/C plan: 1-2 days Code status: Full Code(s): E10.9 - TYPE 1 DIABETES MELLITUS WITHOUT COMPLICATIONS
[2024-04-17] MEDS ORDERED: PATIENT OWN MEDICATION SQ PRN (10:51)
[2024-04-17] MEDS ORDERED: D50W 50 ml Abboject IV PRN (11:31)
[2024-04-17] MEDS ORDERED: GlucaGen 1 MG IM PRN (11:31)
[2024-04-17] MEDS ORDERED: Glutose 15 GM ORAL GEL PO PRN (11:31)
[2024-04-17] MEDS: PHARMACY RENAL DOSING MC ONE (13:02)
[2024-04-17] MEDS: Cozaar 50 MG PO SCH (16:06)
[2024-04-17] MEDS: TYLENOL 325 MG PO PRN (19:28)
[2024-04-18 06:24] LABS: Hematocrit 41.1 % (40.1-51.0); Hemoglobin 14.2 g/dL (13.7-17.5); Mean Cell Volume 87.8 fL (79.0-92.2); Mean Corpuscular Hemoglobin 30.3 pg (25.7-32.2); Mean Corpuscular Hgb Concent. 34.5 g/dL (32.3-36.5); Mean Platelet Volume 11.2 fL (9.4-12.4); Platelet Count 203 x10^3/uL (163-337); Red Blood Count 4.68 x10^6/uL (4.63-6.08); Red Cell Distribution Width 12.2 % (11.6-14.4); White Blood Count 5.2 x10^3/uL (4.23-9.07)
[2024-04-18 06:49] LABS: ANION GAP 9.1 MEQ/L (5-15); Calcium 8.7 mg/dL (8.4-10.2); Creatinine 1 0.94 mg/dL (0.66-1.25); EST GLOMERULAR FILTRATION RATE 101.9 ML/MIN; Potassium 3.8 mmol/L (3.5-5.1)
--- NOTE | 2024-04-18 07:36 | PCM.DS ---
Discharge Summary Date of Admission: 04/17/24 09:14 Date of Discharge: 04/18/24 Admitting Physician: ASHLEY CATALAN MD Consults: Consults on Case 04/17/24 09:44 Consult Neurology ROUTINE 04/17/24 11:31 Notify Physician ROUTINE Primary Care Provider: LAN BARDALES ZHOU Allergies Allergies Penicillins Allergy (Verified 04/17/24 04:25) Hospital Summary - Hospital Course Hospital Course: 04/17/24 is a 43 year old male with PMHX of Type I DM, asthma, HTN, and nonalcoholic fatty liver disease. Patient presented with 3 syncopal episodes prior to arrival. Neuro exam normal in ER and on IP admission. He has a headache and was given tylenol in the ER, current pain level 3/10. Vitals are stable. Forehead laceration was repaired by Dr. Schuster in ER with glue and Steri-Strips. Workup showed normal white count, chemistries fairly unremarkable except for mild elevation in TSH. Negative troponins. EKG is sinus rhythm with no ST elevations. Chest x-ray is negative for any acute cardiopulmonary findings. CT head is negative. CTA head and neck are negative for any acute occlusive findings. Neurology consulted. We are unable to do MRI, or echo on the weekends. Placed on tele. Will monitor glucose by dexcom and compare with accucheck machine AC/HS. He denies any further concerns at this time. 04/18/24 Pt resting in bed. no overnight events. Per neurology pt will need an MRI brain, EEG, and Echo OP. Pt will have to set this up with PCP as it is the weekend and we are unable to do so. Neurology also thinks pt may have had a concussion. Discussed Logging BP readings and glucose levels to take to PCP. Hold BP med if BP low. Pt states he is able to take his own BP at home. He denies any further concerns at this time. - Vitals & Intake/Output Vital Signs: Vital Signs Temperature 97.5 F 04/18/24 03:51 Pulse Rate 66 04/18/24 03:51 Respiratory Rate 16 04/18/24 03:51 Blood Pressure 118/74 04/18/24 03:51 O2 Sat by Pulse Oximetry 97 04/18/24 03:51 Intake & Output: Intake & Output 04/15/24 04/16/24 04/17/24 12/22/24 11:59 11:59 11:59 11:59 Intake Total 1712 Balance 1712 Weight 84 kg - Lab Result Diagrams: 04/18/24 06:24 04/18/24 06:24 Lab Results-Last 24 Hrs: Lab Results-Last 24 Hours 04/17/24 04/17/24 04/17/24 Range/Units 09:05 11:26 11:57 WBC (4.23-9.07) x10^3/uL RBC (4.63-6.08) x10^6/uL Hgb (13.7-17.5) g/dL Hct (40.1-51.0) % MCV (79.0-92.2) fL MCH (25.7-32.2) pg MCHC (32.3-36.5) g/dL RDW (11.6-14.4) % Plt Count (163-337) x10^3/uL MPV (9.4-12.4) fL Sodium (135-145) mmol/L Potassium (3.5-5.1) mmol/L Chloride (98-107) mmol/L Carbon Dioxide (22-30) mmol/L Anion Gap (5-15) MEQ/L BUN (9-20) mg/dL Creatinine (0.66-1.25) mg/dL Estimated GFR ML/MIN Glucose (74-106) mg/dL POC Glucometer 50 L 76 (74 to 106) mg/dL Hemoglobin A1c (4.5-6.0) % Calcium (8.4-10.2) mg/dL Troponin I < 0.012 (0.000-0.033) ng/mL 04/17/24 04/17/24 04/17/24 Range/Units 13:25 16:10 20:56 WBC (4.23-9.07) x10^3/uL RBC (4.63-6.08) x10^6/uL Hgb (13.7-17.5) g/dL Hct (40.1-51.0) % MCV (79.0-92.2) fL MCH (25.7-32.2) pg MCHC (32.3-36.5) g/dL RDW (11.6-14.4) % Plt Count (163-337) x10^3/uL MPV (9.4-12.4) fL Sodium (135-145) mmol/L Potassium (3.5-5.1) mmol/L Chloride (98-107) mmol/L Carbon Dioxide (22-30) mmol/L Anion Gap (5-15) MEQ/L BUN (9-20) mg/dL Creatinine (0.66-1.25) mg/dL Estimated GFR ML/MIN Glucose (74-106) mg/dL POC Glucometer 183 H 139 H (74 to 106) mg/dL Hemoglobin A1c (4.5-6.0) % Calcium (8.4-10.2) mg/dL Troponin I < 0.012 (0.000-0.033) ng/mL 04/18/24 04/18/24 04/18/24 Range/Units 06:24 06:24 06:24 WBC 5.2 (4.23-9.07) x10^3/uL RBC 4.68 (4.63-6.08) x10^6/uL Hgb 14.2 (13.7-17.5) g/dL Hct 41.1 (40.1-51.0) % MCV 87.8 (79.0-92.2) fL MCH 30.3 (25.7-32.2) pg MCHC 34.5 (32.3-36.5) g/dL RDW 12.2 (11.6-14.4) % Plt Count 203 (163-337) x10^3/uL MPV 11.2 (9.4-12.4) fL Sodium 140 (135-145) mmol/L Potassium 3.8 (3.5-5.1) mmol/L Chloride 108 H (98-107) mmol/L Carbon Dioxide 27 (22-30) mmol/L Anion Gap 9.1 (5-15) MEQ/L BUN 19 (9-20) mg/dL Creatinine 0.94 (0.66-1.25) mg/dL Estimated GFR 101.9 ML/MIN Glucose 135 H (74-106) mg/dL POC Glucometer (74 to 106) mg/dL Hemoglobin A1c 5.93 (4.5-6.0) % Calcium 8.7 (8.4-10.2) mg/dL Troponin I (0.000-0.033) ng/mL Micro Results-Entire Visit: Accuchecks Date 04/17/24 Date 04/17/24 Date 04/17/24 Time 21:00 - Radiology Exams Ordered Rad Exams-Entire Visit: Radiology Procedures Category Date Time Status CHEST 1 VIEW (PORTABLE) Stat Exams 04/17/24 07:[address] ANGIOGRAPHY NECK [CT] Stat Exams 04/17/24 05:22 Completed CTA HEAD W AND/OR WO CONTRAST [CT] Stat Exams 04/17/24 05:22 Completed HEAD WITHOUT CONTRAST [CT] Stat Exams 04/17/24 04:16 Completed - Procedures and Test Procedures and Tests throughout Hospitalization: Therapy Orders & Screens 04/17/24 06:48 Bardy 3-7 Day Holter ONCE Comment: 72 hours 04/17/24 09:35 EKG STAT Comment: Diagnosis: Syncope and collapse Discharge Exam General Appearance: no apparent distress, alert Neurologic Exam: alert, oriented x 3, cooperative, normal mood/affect, nml c erebellar function, sensation nml, No motor deficits Eye Exam: PERRL, EOMI, eyes nml inspection Ears, Nose, Throat Exam: normal ENT inspection, pharynx normal, moist mucous membranes Neck Exam: normal inspection, non-tender, supple, full range of motion Respiratory Exam: normal breath sounds, lungs clear, No respiratory distress Cardiovascular Exam: regular rate/rhythm, normal heart sounds Gastrointestinal/Abdomen Exam: soft, No tenderness, No mass Male Genitalia Exam: deferred Rectal Exam: deferred Back Exam: normal inspection, normal range of motion, No CVA tenderness, No vertebral tenderness Extremity Exam: normal inspection, normal range of motion Skin Exam: normal color, warm, dry Final Diagnosis/Problem List - Final Discharge Diagnosis/Problem (1) Syncope and collapse Current Visit: Yes Status: Acute Code(s): R55 - SYNCOPE AND COLLAPSE (2) Laceration of forehead without complication Current Visit: Yes Status: Acute Code(s): S01.81XA - LACERATION W/O FOREIGN BODY OF OTH PART OF HEAD, INIT ENCNTR (3) Pansinusitis Current Visit: Yes Status: Acute Code(s): J32.4 - CHRONIC PANSINUSITIS (4) Nonalcoholic fatty liver disease Current Visit: Yes Status: Chronic (5) HTN (hypertension) Current Visit: Yes Status: Chronic Code(s): I10 - ESSENTIAL (PRIMARY) HYPERTENSION (6) Type I diabetes mellitus, well controlled Current Visit: Yes Status: Chronic Assessment & Plan: (1) Syncope and collapse Current Visit: Yes Status: Acute Assessment & Plan: - CBC, CMP reviewed - UA reviewed - Vitals OK - Tele - EKG- NSR - Gucose OK - Will need holter monitor at d/c - Neurology consult- may have a concussion per neurology - CT head: IMPRESSION: 1. No evidence of established infarction, intracranial or extracranial hemorrhage. Early changes of stroke may not be detected on a CT scan. If strong clinical suspicion of stroke then suggest MRI with diffusion-weighted imaging. 2. Pansinusitis. - CXR: Portable apical lordotic chest again demonstrates normal heart, lungs, and bony thorax. Incidental new midline electronic device. - CT angiography: IMPRESSION: 1. Normal CT angiography of the neck. 2. No evidence of significant vascular abnormalities. - CTA Head: IMPRESSION: 1. Normal CT angiography of the head. 2. No evidence of significant vascular or intracranial abnormalities. 04/18 - OP Holter monitor for 48 hours set up by RT prior to D/C. - Pt to have OP Echo, EEG, and MRI brain per neurology- will need to f/u with PCP for orders as we are unable to set up at this time. - Possible concussion per neurology from fall and hitting head. Code(s): R55 - SYNCOPE AND COLLAPSE (2) Laceration of forehead without complication Current Visit: Yes Status: Acute Qualifiers: Encounter type: initial encounter Qualified Code(s): S01.81XA - Laceration without foreign body of other part of head, initial encounter Assessment & Plan: - after fall - ER physician closed with glue and steri-strips Code(s): S01.81XA - LACERATION W/O FOREIGN BODY OF OTH PART OF HEAD, INIT ENCNTR (3) Pansinusitis Current Visit: Yes Status: Acute Assessment & Plan: - Per CT - Flonase daily Code(s): J32.4 - CHRONIC PANSINUSITIS (4) Nonalcoholic fatty liver disease Current Visit: Yes Status: Chronic Assessment & Plan: - AST, ALT normal (5) HTN (hypertension) Current Visit: Yes Status: Chronic Assessment & Plan: - Continue losartan - BP stable - keep a log of BP readings and hold med if BP < 120/80 Code(s): I10 - ESSENTIAL (PRIMARY) HYPERTENSION (6) Type I diabetes mellitus, well controlled Current Visit: Yes Status: Chronic Assessment & Plan: - May use insulin pump - may use home glucose monitoring device. - Compare glucose with accuchecks ac/hs - If glucose readings are not similar alert provider. - A1C 5.93- controlled Code(s): E10.9 - TYPE 1 DIABETES MELLITUS WITHOUT COMPLICATIONS (7) Abnormal TSH Current Visit: Yes Status: Acute Assessment & Plan: - TSH 4.889- F/U OP with PCP for repeat labs Code(s): R79.89 - OTHER SPECIFIED ABNORMAL FINDINGS OF BLOOD CHEMISTRY - Discharge Discharge Date: 04/18/24 Disposition: Home, Self-Care Condition: Good Prescriptions: Continue Insulin Pump Syringe, 3 ml [Insulin Cartridge] 1 each MC DAILY Losartan Potassium 25 mg PO DAILY Outpatient Orders: Holter Monitor Time Frame: 2 Days, Facility: [facility], Location: [facility] Instructions: Concussion in adults, Syncope (fainting) - Discharge instructions, Laceration Repair With Glue ED Additional Instructions: Hold BP med if BP < 120/80. Take BP at least twice daily. Before med is due and in the evening. Keep a log of glucose and BP readings and take to Dr. Bardales at appointment. Will need MRI brain, EEG, and Echo outpatient. Dr. Cornelius to order. Follow up with: LAN BARDALES MD [Primary Care Provider] -
[2024-04-18 07:57] VITALS: O2SAT 96
[2024-04-18] MEDS: Flonase NASAL NS SCH (09:25)
[2024-04-18] MEDS ORDERED: NON-FORMULARY ITEM (Losartan Potassium [Losartan Potassium] 25 MG Tablet) PO SCH (10:00)
[2024-04-18] MEDS ORDERED: INSULIN PUMP MC SCH (10:00)
[2024-04-18 12:06] VITALS: BP 140/80; PULSE 65; RESP 18; TEMP 97.6
== END 2024-04-18 11:54 | disposition home or self-care (01) ==
LOC: ED 04:02 → MED SURG 09:14
PROVIDERS: ADMIT Internal Medicine; ATTEND Internal Medicine
DX: R55 Syncope and collapse (principal); S01.81XA Laceration without foreign body of other part of head, initial encounter; J32.4 Chronic pansinusitis; K76.0 Fatty (change of) liver, not elsewhere classified; I10 Essential (primary) hypertension; E10.9 Type 1 diabetes mellitus without complications; R79.89 Other specified abnormal findings of blood chemistry; W19.XXXA Unspecified fall, initial encounter; Z79.899 Other long term (current) drug therapy
CPT/HCPCS: 36415; 70450; 70496; 70498; 71045; 80048; 80053; 81001; 82140; 82947; 83036; 84443; 84484; 85025; 85027; 93005; 93268; 99284; G0378; Q3014; A9270-GY